=== PATIENT | female | born 1980 | race Caucasian/White ===

== ENCOUNTER 2024-10-11 14:21 | Emergency (ER) | payer MEDICAID, SELFPAY ==
[2024-10-11 14:32] VITALS: BP 125/82; PULSE 82; RESP 14; TEMP 36.8; O2SAT 99; BMI 27.3
--- NOTE | 2024-10-11 15:00 | ED_ITS ---
Discharge Plan Disposition Patient Disposition: Home, Self-Care Prescriptions Prescriptions: New buprenorphine-naloxone [Suboxone] 8-2 mg film 2 film buccal DAILY Qty: 10 0RF Rx Instructions: place 1 film on inside of (each) cheek buprenorphine-naloxone [Suboxone] 8-2 mg film 2 film sublingual DAILY Qty: 4 0RF Rx Instructions: place 1 strip/tab under (each) side of tongue Referrals Follow up/Referrals: Provider,Referral, MD [Primary Care Provider] - See instructions Activity Restrictions/Add. Instructions Additional Instructions/Restrictions: Call your family doctor to establish care for this visit to the emergency department and schedule follow-up within 48 hours to ensure improvement. If you have any worsening of your condition or any other concerning signs or symptoms, return to the emergency department or your primary care doctor for further evaluation. Clinical Impressions Clinical Impression: Medication refill Instructions Patient Instructions: DI for Diarrhea and Traveler's Diarrhea -- Adult, DI for Diarrhea and Traveler's Diarrhea -- Child, DI for Nausea -- Adult, DI for Nausea -- Child Print Language Print Language: [place] Discharge ED Provider: Miguel Angel Ponce General Adult HPI General Chief complaint: Nausea/Vomiting/Diarrhea Stated complaint: withdrawl symptoms light headed Time Seen by Provider: 10/11/24 14:45 Mode of Arrival: Ambulatory Source of Information: Patient Description of Symptoms (Recalled from ER Triage Doc. by RN): Pt is requesting her suboxone dose. When asked what dosage she replies 8 Something. I take it two times a day. History of Present Illness HPI narrative: Please note that above description of symptoms, in this electronic medical record under categorization of recalled from ER triage doctor by RN are reflective of an initial nursing assessment, however, is not reflective of my full history and physical exam that was personally taken and clarified. Consequentially, this preceding description of symptoms, which may include the patient's categorized chief complaint in the EMR, do not reflect my personal clinical impression, and the ultimate description of history of present illness and patient stated complaints should be deferred to this section of the note. Unless stated otherwise or congruent with this section of the note, additional signs, symptoms, or incongruence should be interpreted as inaccurate with my clinical impression. Related Data Previous Rx's ?Medication ?Instructions ?Recorded buprenorphine 8 mg-naloxone 2 mg 2 film buccal DAILY #10 ea 03/11/25 sublingual film (Suboxone) buprenorphine 8 mg-naloxone 2 mg 2 film sublingual DAILY #4 ea 10/11/24 sublingual film (Suboxone) Allergies Allergy/AdvReac Type Severity Reaction Status Date / Time INGREDIENT: NO KNOWN - NO Allergy Unknown Uncoded 07/21/17 15:18 KNOWN DRUG ALLERGY [facility] Disclaimer: The information contained in this section may have been updated after the patient was seen, as this information can be updated by other users. Social History Smoking Status: Current every day smoker alcohol intake: never current occupational status: unemployed Travel in the last 8 weeks: None ROS Obtained: Yes All systems reviewed & no additional complaints except as documented Physical Exam General General appearance: alert Head Head exam: atraumatic and normocephalic Eye Eye exam: Present normal appearance, PERRL and EOMI Neck Neck exam: Present normal inspection, full ROM and trachea midline Respiratory Respiratory exam: Absent respiratory distress, wheezes, stridor, accessory muscle use or prolonged expiratory phase Cardiovascular Cardiovascular exam: Present other (Pulses equal symmetric in upper and lower extremities) Abdominal Exam Abdominal exam: Present soft; Absent distention, tenderness or pulsatile mass Extremities Exam Extremities exam: Absent edema Neurological Exam Neurological exam: Present alert, oriented X3 and CN II-XII intact; Absent motor sensory deficit Skin Skin exam: Present warm and dry; Absent diaphoresis or erythema Medical Decision Making Medical Records Medical records reviewed: Yes I reviewed the patient's medical records. Screening: Per USPSTF and CDC recommendations, given the prevalence of disease in our region, it is our hospital?s policy to screen for HIV and viral Hepatitis for all patients aged 18 and over and those with ongoing risk factors. Javier Inquiry Pt receiving controlled substance: No Javier was queried for this patient: No Vital Signs: 10/11/24 14:32 Temperature 98.2 F Temperature Source Oral Pulse Rate [Right] 82 Respiratory Rate 14 Blood Pressure [Right Arm] 125/82 Blood Pressure Mean [Right Arm] 96 Blood Pressure Source [Right Arm] Automatic Cuff Blood Pressure Position [Right Arm] Sitting 02 Sat by Pulse Oximetry 99 Oxygen Delivery Method Room Air Orders (Tests/Meds): ED MEDICATIONS Discontinued Medications Generic Name Dose Route Start Last Admin Trade Name Freq PRN Reason Stop Dose Admin Buprenorphine/Naloxone 2 each 10/11/24 14:47 Buprenorphine/Naloxone 8mg/2mg Odt SL 10/11/24 14:48 ONCE ONE Medical Decision Narrative: 43-year-old female presenting for Suboxone refill. States that she had a in the family, was at the , unable to go to Suboxone clinic. Next appointment is 7 days from now. States that she has her medicine sent into [facility]. First dose to be given here, rest of it to be sent into [facility]. Patient not having any symptoms other than generalized lethargy and some anxiety. Because patient at baseline without signs or symptoms of clinical decompensation, deemed appropriate for discharge. I discussed my clinical impression with patient and answered all questions. At this time, the evidence for any other entities in the differential is insufficient to warrant any further testing or ED observation. This was explained as well. Advisory was given that persistent or worsening symptoms require further evaluation. I confirmed the understanding of this discussion. Hr Receptionist disclaimer Much of this encounter note is an electronic herbarium curator spoken language to printed text. Electronic herbarium curator of the spoken language may permit errors. Although I have reviewed the note, some errors may still exist. Critical Care Critical Care Time Critical Care Time: No
[2024-10-11 15:03] VITALS: BP 125/82; PULSE 82; RESP 19; TEMP 36.8
--- NOTE | 2024-10-11 15:39 | PC.NURSE ---
pts license was left at registration. pt called back for said license. pt is going to get medications refilled at the pharmacy and then coming back to ED to get license. and receive information from sterilization specialist.
[2024-10-11] MEDS: BUPRENORPHINE/NALOXONE 8MG/2MG ODT 2 EACH SL (16:04)
--- NOTE | 2024-10-11 16:06 | PC.NURSE ---
medication that was ordered was missed when pt was being discharged. pt called back to check about license, TRN asked pt to come back into ER for medication administration.
== END 2024-10-11 15:04 | disposition home or self-care (01) ==
PROVIDERS: Emergency Provider Emergency Medicine
DX: Z76.0 Encounter for issue of repeat prescription (principal); R42 Dizziness and giddiness; R53.83 Other fatigue; F41.9 Anxiety disorder, unspecified; Z72.0 Tobacco use
CPT/HCPCS: 99283; J0574